=== PATIENT | male | born 1955 | race Caucasian/White ===

== ENCOUNTER 2022-08-21 13:57 | Emergency (ER) | payer MEDICARE ==
[~2022-08-21] VITALS: Ht 170.2 cm; Wt 79.4 kg
[~2022-08-21 13:57] MED LIST: ASCO100031 PO; BISA-151 PO; CALC-1125 PO; CHOL500051 PO; CINN500C PO; DOCU-116 PO; FISH1CAP63 PO; LACT PO; LISI10TA24 PO; MAGN400C PO; METF-444 PO; METO-391 PO; NYST5ORA7 PO; PANT40TA PO; POLY17PO4 PO; ROSU10TA28 PO; ZINC220T4 PO
[2022-08-21 18:27] LABS: BASOPHILS % (AUTO) 0.3 % (0.0-5.0); EOSINOPHILS % (AUTO) 3.7 % (0.0-8.0); HEMATOCRIT 27.9 % (42-54); LYMPHOCYTES % (AUTO) 27.4 % (21.0-51.0); MEAN CORPUSCULAR HEMOGLOBIN 29.3 pg (27.0-33.0); MEAN CORPUSCULAR VOLUME 88.9 fL (79-99); MONOCYTES % (AUTO) 9.7 % (3.0-13.0); NEUTROPHILS % (AUTO) 58.6 % (40.0-77.0); PLATELET COUNT (AUTO) 177 K/uL (130-400); RED BLOOD CELL COUNT(AUTO) 3.14 MIL/uL (4.50-6.20); RED CELL DISTRIBUTION WIDTH 13.5 % (11.0-15.5); WHITE BLOOD COUNT (AUTO) 9.6 K/uL (4.8-10.8)
[2022-08-21 18:36] LABS: CREATININE 1.1 mg/dL (0.5-1.5); POTASSIUM 4.5 mmol/L (3.5-5.1)
[2022-08-21 18:41] LABS: ALBUMIN 3.5 g/dL (3.5-5.0); TOTAL PROTEIN, SERUM 7.6 g/dL (6.0-8.3)
[2022-08-21 22:07] VITALS: BP 154/79
== END 2022-08-21 22:22 | disposition home or self-care (01) ==
LOC: EDH 13:57
DX: R74.8 Abnormal levels of other serum enzymes (principal); K83.1 Obstruction of bile duct; E11.9 Type 2 diabetes mellitus without complications; I10 Essential (primary) hypertension; Z79.84 Long term (current) use of oral hypoglycemic drugs; Z79.899 Other long term (current) drug therapy; Z88.6 Allergy status to analgesic agent
CPT/HCPCS: 36415; 74176; 80053; 83690; 85025